=== PATIENT | male | born 1945 | race Caucasian/White ===

== ENCOUNTER 2020-02-20 18:55 | Emergency (ER) | payer MEDICARE ==
[~2020-02-20] VITALS: Ht 177.8 cm; Wt 102.0 kg
[~2020-02-20 18:55] MED LIST: LISI-170 PO; OMEP10CA5 PO; PREG300C PO
[2020-02-20 19:03] VITALS: BP 156/58
--- NOTE | 2020-02-20 19:09 | NUR ---
PLEASANT 74 YO M YADIEL MARCELINO MORALES AFTER TELLING POLICE HE WANTED TO HAVE HIS HEART CHECKED OUT. EN ROUTE TO [facility] ED, PT STATES THAT HE DIDN'T WANT HIS HEART CHECKED OUT BUT NEEDED HELP "DETOXING FROM ALCOHOL". PT REPORTS 6-9 BEERS THROUGHOUT THE DAY. PT ALSO STATES HE'S BEEN NON COMPLIANT WITH HIS BP MEDICATIONS X 3 WEEKS. PT ARRIVES AND ATTACHED TO [employer]ING [employer] HELPER AND VS MACHINES. VSS. PT CHANGED INTO GOWN IN [facility], WITH DR. CASTRO AT FOR PT HISTORY AND ASSESSMENT. PT HAS CALL LIGHT WITHIN REACH AT THIS TIME AND VERBALIZES UNDERSTANDING OF POC AND ER PROCESS. AWAITING ORDERS AT THIS TIME.
--- NOTE | 2020-02-20 19:27 | NUR ---
PT D/C WITH D/C SUMMARY AND SRCRIPTS. PT PROVIDED WITH REFERRAL TO [facility]OX [facility]. PT QUESTIONS ANSWERED. PT AMBULATES WITH WALKER WITH STEADY GAIT TO D/C DESK FOR D/C HOME. PT DENIES ANY OTHER NEEDS PERTAINING TO THIS VISIT.
== END 2020-02-20 19:30 ==
LOC: ED 19:00
DX: F10.220 Alcohol dependence with intoxication, uncomplicated (principal); Y90.9 Presence of alcohol in blood, level not specified; I10 Essential (primary) hypertension; E03.9 Hypothyroidism, unspecified; J44.9 Chronic obstructive pulmonary disease, unspecified; F17.200 Nicotine dependence, unspecified, uncomplicated
CPT/HCPCS: 99283